=== PATIENT | female | born 1985 | race Caucasian/White ===

== ENCOUNTER 2018-02-22 15:27 | Emergency (ER) | payer OTHER, MEDICAID ==
[~2018-02-22] VITALS: Ht 167.6 cm; Wt 57.0 kg
[2018-02-22 15:34] VITALS: BP 155/102; PULSE 111; RESP 14; TEMP 98.1
--- NOTE | 2018-02-22 16:10 | PD ---
HPI Chief Complaint: Psychiatric Symptoms Time Seen by Provider: 15:40 Travel History International Travel<30 days: No Contact w/Intl Traveler<30days: No Traveled to known affect area: No History of Present Illness HPI 32-year-old female brought in under the Ovalles act after running into the [place], claiming that she was being chased by somebody, and stating that she was suicidal. At the time the patient was brought in by police, she was alert and oriented. She has since become more somnolent and only arousable with loud stimuli. She is not answering questions. There is obvious track villanueva on both upper extremities. Vital signs are stable. And the patient is oxygenating well. There is no sign of active infection. She has no known drug allergies. PFSH Past Medical History ?: Unknown Social History Alcohol Use: Yes Tobacco Use: Yes (unknown) Allergies-Medications (Allergen,Severity, Reaction): Coded Allergies: No Known Allergies (Unverified , 02/22/18) Reported Meds & Prescriptions Reported Meds & Active Scripts Active Active Prescriptions or Reported Medications Unobtainable Review of Systems ROS Limitations: Intoxication, Poor Historian Except as stated in HPI: all other systems reviewed are Neg General / Constitutional: No: Fever Eyes: No: Visual changes HENT: No: Headaches Cardiovascular: No: Chest Pain or Discomfort Respiratory: No: Shortness of Breath Gastrointestinal: No: Abdominal Pain Genitourinary: No: Dysuria Musculoskeletal: No: Pain Skin: No Rash Neurologic: No: Weakness Psychiatric: No: Depression Endocrine: No: Polydipsia Hematologic/Lymphatic: No: Easy Bruising Physical Exam Exam Limitations: Intoxication Narrative GENERAL: Patient is somnolent but arousable. SKIN: Warm and dry. Normal color. Normal turgor. She has old track villanueva on both upper extremities without current signs of infection or abscess HEAD: Atraumatic. Normocephalic. EYES: Pupils equal and round. No scleral icterus. No injection or drainage. ENT: No nasal bleeding or discharge. Mucous membranes pink and moist. Pharynx is clear. NECK: Trachea midline. Supple. CARDIOVASCULAR: Regular rate and rhythm. RESPIRATORY: No accessory muscle use. Clear to auscultation. Breath sounds equal bilaterally. GASTROINTESTINAL: Abdomen soft, non-tender, nondistended. Hepatic and splenic margins not palpable. MUSCULOSKELETAL: Extremities without clubbing, cyanosis, or edema. No obvious deformities. NEUROLOGICAL: Awake and alert. No obvious cranial nerve deficits. Motor grossly within normal limits. Five out of 5 muscle strength in the arms and legs. Normal speech. PSYCHIATRIC: Unable to assess. Data Data Last Documented VS Vital Signs Date Time Temp Pulse Resp B/P (MAP) Pulse Ox O2 Delivery O2 Flow Rate FiO2 02/22/18 17:25 101 18 151/94 (113) 97 Room Air 02/22/18 15:34 98.1 Orders Orders Complete Blood Count With Diff (02/22/18 15:40) Comprehensive Metabolic Panel (02/22/18 15:40) Thyroid Stimulating Hormone (02/22/18 15:40) Urinalysis - C+S If Indicated (02/22/18 15:40) Psych Screen (02/22/18 15:40) Drug Screen, Random Urine (02/22/18 15:40) Alcohol (Ethanol) (02/22/18 15:40) Electrocardiogram (02/22/18 ) Labs Laboratory Tests Test 02/22/18 16:13 White Blood Count 10.1 TH/MM3 Red Blood Count 4.74 MIL/MM3 Hemoglobin 14.9 GM/DL Hematocrit 42.0 % Mean Corpuscular Volume 88.8 FL Mean Corpuscular Hemoglobin 31.5 PG Mean Corpuscular Hemoglobin Concent 35.5 % Red Cell Distribution Width 12.8 % Platelet Count 235 TH/MM3 Mean Platelet Volume 9.5 FL Neutrophils (%) (Auto) 80.0 % Lymphocytes (%) (Auto) 11.1 % Monocytes (%) (Auto) 8.3 % Eosinophils (%) (Auto) 0.3 % Basophils (%) (Auto) 0.3 % Neutrophils # (Auto) 8.1 TH/MM3 Lymphocytes # (Auto) 1.1 TH/MM3 Monocytes # (Auto) 0.8 TH/MM3 Eosinophils # (Auto) 0.0 TH/MM3 Basophils # (Auto) 0.0 TH/MM3 CBC Comment DIFF FINAL Differential Comment Urine Color YELLOW Urine Turbidity HAZY Urine pH 6.5 Urine Specific [place] 1.018 Urine Protein 100 mg/dL Urine Glucose (UA) TRACE mg/dL Urine Ketones TRACE mg/dL Urine Occult Blood TRACE Urine Nitrite NEG Urine Bilirubin NEG Urine Urobilinogen LESS THAN 2.0 MG/DL Urine Leukocyte Esterase NEG Urine RBC 1 /hpf Urine WBC 4 /hpf Urine Squamous Epithelial Cells 2 /hpf Urine Amorphous Sediment FEW Urine Bacteria RARE /hpf Urine Hyaline Casts 31 /lpf Urine Mucus FEW /lpf Microscopic Urinalysis Comment CULT NOT INDICATED Blood Urea Nitrogen 10 MG/DL Creatinine 1.00 MG/DL Random Glucose 77 MG/DL Total Protein 8.6 GM/DL Albumin 4.5 GM/DL Calcium Level 9.1 MG/DL Alkaline Phosphatase 74 U/L Aspartate Amino Transf (AST/SGOT) 33 U/L Alanine Aminotransferase (ALT/SGPT) 35 U/L Total Bilirubin 0.9 MG/DL Sodium Level 140 MEQ/L Potassium Level 3.1 MEQ/L Chloride Level 104 MEQ/L Carbon Dioxide Level 26.7 MEQ/L Anion Gap 9 MEQ/L Estimat Glomerular Filtration Rate 48 ML/MIN Thyroid Stimulating Hormone 3rd Gen 0.852 uIU/ML Urine Opiates Screen POS Urine Barbiturates Screen NEG Urine Amphetamines Screen POS Urine Benzodiazepines Screen NEG Urine Cocaine Screen NEG Urine Cannabinoids Screen POS Ethyl Alcohol Level LESS THAN 3 MG/DL MDM Medical Decision Making Medical Screen Exam Complete: Yes Emergency Medical Condition: Yes Differential Diagnosis Ovalles act. Psychotic symptoms. IV drug use. Narrative Course Patient's vital signs are stable and she is sleeping comfortably. Psychiatric labs ordered per protocol. CBC is unremarkable. Chemistries are significant for potassium 3.1 otherwise unremarkable. Urinalysis shows 100 protein, trace ketones, trace occult blood otherwise unremarkable. Urine tox screen is positive for opiates, amphetamines, and marijuana. Serum alcohol is less than 3 per IV access is obtained and the patient is given 1 L normal saline bolus. Psych screen is ordered. Patient will be medically cleared once able to ambulate. Scripts Unable to Obtain Active Prescriptions or Reported Meds Condition: Stable Trenton Correia February 22, 2018 16:10
[2018-02-22 16:37] LABS: AUTOMATED NEUTROPHIL # 8.1 TH/MM3 (1.8-7.7); BASOPHIL % 0.3 % (0.0-2.0); EOSINOPHIL % 0.3 % (0.0-4.0); HEMOGLOBIN 14.9 GM/DL (11.6-15.3); LYMPH % 11.1 % (9.0-44.0); LYMPHOCYTE # 1.1 TH/MM3 (1.0-4.8); MEAN CELL VOLUME 88.8 FL (80.0-100.0); MEAN CORPUSCULAR HEMOGLOBIN 31.5 PG (27.0-34.0); MEAN CORPUSCULAR HGB CONC 35.5 % (32.0-36.0); MEAN PLATELET VOLUME 9.5 FL (7.0-11.0); MONO % 8.3 % (0.0-8.0); MONOCYTE # 0.8 TH/MM3 (0-0.9); PLATELET COUNT 235 TH/MM3 (150-450); RED BLOOD COUNT 4.74 MIL/MM3 (4.00-5.30); RED CELL DISTRIBUTION WIDTH 12.8 % (11.6-17.2); WHITE BLOOD COUNT 10.1 TH/MM3 (4.0-11.0)
[2018-02-22 16:58] LABS: AMORPHOUS SEDIMENT, URINE FEW; BACTERIA, URINE RARE /hpf; BILIRUBIN, URINE NEG (NEG); BLOOD, URINE TRACE (NEG); GLUCOSE,URINE TRACE mg/dL (NEG); HYALINE CAST, URINE 31 /lpf (RARE); KETONE, URINE TRACE mg/dL (NEG); MUCUS URINE FEW /lpf (OCC); NITRITE,URINE NEG (NEG); PH, URINE 6.5 (5.0-8.5); SQUAMOUS EPITHELIAL CELL URINE 2 /hpf (0-5); URINE COLOR YELLOW (YELLW/STRAW); URINE LEUKOCYTE ESTERASE NEG (NEG)
[2018-02-22 17:07] LABS: ALBUMIN 4.5 GM/DL (3.4-5.0); ALT (GPT) 35 U/L (10-53); AST (GOT) 33 U/L (15-37); BICARBONATE 26.7 MEQ/L (21.0-32.0); BLOOD UREA NITROGEN 10 MG/DL (7-18); CALCIUM 9.1 MG/DL (8.5-10.1); CHLORIDE 104 MEQ/L (98-107); GLOMERULAR FILTRATION RATE 48 ML/MIN (>89); GLUCOSE,RANDOM 77 MG/DL (74-106); SODIUM (NA) 140 MEQ/L (136-145)
[2018-02-22 17:17] LABS: ALKALINE PHOSPHATASE 74 U/L (45-117); TOTAL BILIRUBIN ADULT 0.9 MG/DL (0.2-1.0); TOTAL PROTEIN 8.6 GM/DL (6.4-8.2)
[2018-02-22 17:25] VITALS: BP 151/94; PULSE 101; RESP 18; O2SAT 97
[2018-02-22] MEDS ORDERED: POTASSIUM CHLORIDE 20 MEQ CONTROLLED RELEASE TAB PO ONE (18:00)
[2018-02-22 18:06] VITALS: BP 119/68; PULSE 89; RESP 18; O2SAT 99
[2018-02-22 20:01] VITALS: BP 126/85; PULSE 107; RESP 18; TEMP 98.7; O2SAT 100
[2018-02-22 23:12] VITALS: BP 114/67; PULSE 75; RESP 18; TEMP 98.3; O2SAT 98
[2018-02-23 02:28] VITALS: BP 111/63; PULSE 80; RESP 20; O2SAT 98
[2018-02-23 06:38] VITALS: BP 117/64; PULSE 73; RESP 18; TEMP 99.2; O2SAT 100
--- NOTE | 2018-02-23 10:29 | PD ---
History of Present Illness Chief Complaint: Psychiatric Symptoms Time Seen by Provider: 09:25 Travel History International Travel<30 Days: No Contact w/Intl Traveler<30days: No Known affected area: No Legal Status Legal Status: Ovalles Act O[place] Act Signed By: Aron Balderas History of Present Illness: Patient is a 33-year-old female that was transported under a Ovalles act by [facility] [employer]. On arrival she could not identify herself and she was listed as Jennifer Griffith per documents her real name is Radha Epps with 85. The Ovalles Act state, "subject called her mother stating that she was being chased. Officer Jackelin responded subject found to be very anxious and paranoid after several minutes of denying drug use she ran into traffic and then jumped into the health x-ray of her since being taken into custody she is starting to feel fall asleep." Patient states that she has been from her for three years and they just reunited with their two daughter within the past three months. She states she has an addiction problem and she was in [facility] to find drugs. She believes that she did "mollys" yesterday. Her UDS is positive for opiates, amphetamine and cannabis.On arrival she was not responding so they made her a Jennifer Estrada. Today she has recall of the officers and jumping into the river. She states that she has no suicidal ideations and recognizes that she needs help with her drug addictions or her we leave her again ( she states her does not have a drug problem." Chart reviewed and patient discussed with TIFFANI Russo. Patient was transferred from the main ED last night to [facility] for further monitoring. This morning patient is alert and oriented x 4. She is unkept and looks her stated age. Motor is normal with steady gait. She has good insight , but poor judgement r/t traveling to [facility] and leaving her children for drugs. Attention and concentration is normal. Fund of knowledge is normal. She has good recall of remote and recent memory. Her mood is anxious and affect is euthymic. She endorses no suicidal ideations. Patient is at low risk for self harm or harming others. Patient lives in [place] with her and two children. Will provide patient with information regarding [facility] and direct her to services in her area for assistance with her drug addictions. Patient requesting bus passes and her will pick her up at the bus station. Dx: Mood Disorder, Substance Induced; Polysubstance Use PFSH Past Medical History ?: Unknown Psychiatric History Psychiatric History Patient states that she has no psychiatric history. Hx Psychiatric Treatment: Denies History of Inpatient Treatment: No Social History Hx Alcohol Use: Yes Hx Tobacco Use: Yes (unknown) Hx Substance Use: Yes (leigha, marijuana) Hx of Substance Use Treatment: No Allergies-Medications (Allergen,Severity, Reaction): Coded Allergies: No Known Allergies (Unverified , 02/22/18) Reported Meds & Prescriptions Reported Meds & Active Scripts Active Active Prescriptions or Reported Medications Unobtainable Mental Status Examination Appearance: Disheveled Consciousness: Alert Motor Activity: Normal gait Speech: Unremarkable Language: Adequate Fund of Knowledge: Adequate Attention and Concentration: Adequate Memory: Unremarkable Mood: Appropriate Affect: Appropriate Thought Process & Associations: Intact Thought Content: Appropriate Hallucination Type: None Delusion Type: None Suicidal Ideation: No Suicidal Plan: No Suicidal Intention: No Homicidal Ideation: No Homicidal Plan: No Homicidal Intention: No Insight: Adequate Judgment: Adequate MDM Medical Decision Making Medical Record Reviewed: Yes Assessment/Plan Patient is 33 y/o female brought in as Jennifer Estrada by [facility] [employer]. Patient reports that she lives with her and two children near [place]. She states that she traveled to [place] to find drugs. She believes that she did "leigha," but she is uncertain. She is positive for opiates, amphetamines and cannabis. This morning she is alert and oriented. Requesting to be discharged. She has called her and he is willing to met her at the bus station. She denies any suicidal ideation. She does engage in conversation regarding going into treatment to stop polysubstance use. Patient is at low risk for self harm or harm to others. Will discharge patient will information on services in her area for drug treatment. Ovalles Act lifted. Orders Orders Complete Blood Count With Diff (5/12/18 15:40) Comprehensive Metabolic Panel (02/22/18 15:40) Thyroid Stimulating Hormone (02/22/18 15:40) Urinalysis - C+S If Indicated (02/22/18 15:40) Psych Screen (02/22/18 15:40) Drug Screen, Random Urine (02/22/18 15:40) Alcohol (Ethanol) (02/22/18 15:40) Electrocardiogram (02/22/18 ) Potassium Chloride (Kcl) (02/22/18 18:00) Diet Regular Basic (02/23/18 Breakfast) Results Vital Signs Date Time Temp Pulse Resp B/P (MAP) Pulse Ox O2 Delivery O2 Flow Rate FiO2 02/23/18 06:38 99.2 73 18 117/64 (81) 100 Room Air 02/23/18 02:28 80 20 111/63 (79) 98 Room Air 02/22/18 23:12 98.3 75 18 114/67 (83) 98 Room Air 02/22/18 20:01 98.7 107 18 126/85 (99) 100 Room Air 02/22/18 18:06 89 18 119/68 (85) 99 Room Air 02/22/18 17:25 101 18 151/94 (113) 97 Room Air 02/22/18 15:34 98.1 111 14 155/102 (119) Laboratory Tests Test 02/22/18 16:13 White Blood Count 10.1 Red Blood Count 4.74 Hemoglobin 14.9 Hematocrit 42.0 Mean Corpuscular Volume 88.8 Mean Corpuscular Hemoglobin 31.5 Mean Corpuscular Hemoglobin Concent 35.5 Red Cell Distribution Width 12.8 Platelet Count 235 Mean Platelet Volume 9.5 Neutrophils (%) (Auto) 80.0 Lymphocytes (%) (Auto) 11.1 Monocytes (%) (Auto) 8.3 Eosinophils (%) (Auto) 0.3 Basophils (%) (Auto) 0.3 Neutrophils # (Auto) 8.1 Lymphocytes # (Auto) 1.1 Monocytes # (Auto) 0.8 Eosinophils # (Auto) 0.0 Basophils # (Auto) 0.0 CBC Comment DIFF FINAL Differential Comment Urine Color YELLOW Urine Turbidity HAZY Urine pH 6.5 Urine Specific [place] 1.018 Urine Protein 100 Urine Glucose (UA) TRACE Urine Ketones TRACE Urine Occult Blood TRACE Urine Nitrite NEG Urine Bilirubin NEG Urine Urobilinogen LESS THAN 2.0 Urine Leukocyte Esterase NEG Urine RBC 1 Urine WBC 4 Urine Squamous Epithelial Cells 2 Urine Amorphous Sediment FEW Urine Bacteria RARE Urine Hyaline Casts 31 Urine Mucus FEW Microscopic Urinalysis Comment CULT NOT INDICATED Blood Urea Nitrogen 10 Creatinine 1.00 Random Glucose 77 Total Protein 8.6 Albumin 4.5 Calcium Level 9.1 Alkaline Phosphatase 74 Aspartate Amino Transf (AST/SGOT) 33 Alanine Aminotransferase (ALT/SGPT) 35 Total Bilirubin 0.9 Sodium Level 140 Potassium Level 3.1 Chloride Level 104 Carbon Dioxide Level 26.7 Anion Gap 9 Estimat Glomerular Filtration Rate 48 Thyroid Stimulating Hormone 3rd Gen 0.852 Urine Opiates Screen POS Urine Barbiturates Screen NEG Urine Amphetamines Screen POS Urine Benzodiazepines Screen NEG Urine Cocaine Screen NEG Urine Cannabinoids Screen POS Ethyl Alcohol Level LESS THAN 3 Diagnosis Primary Impression: Mood disorder, drug-induced Additional Impression: Polysubstance abuse Prescriptions Unable to Obtain Active Prescriptions or Reported Meds Disposition: 01 DISCHARGE HOME Condition: Stable Problem Qualifiers Linnea Wheeler February 23, 2018 10:29
--- NOTE | 2018-02-23 10:41 | PD ---
Physical Exam Date Seen by Provider: February 23, 2018 Time Seen by Provider: 10:40 Narrative 33-year-old female previously Ovalles acted and medically cleared for psychiatric evaluation has been seen in the evaluated by psychiatric staff, and felt to be psychiatrically stable for discharge at this time. Patient remains medically stable for discharge at this time. Follow-up will be based on psychiatric note. Data Data Last Documented VS Vital Signs Date Time Temp Pulse Resp B/P (MAP) Pulse Ox O2 Delivery O2 Flow Rate FiO2 02/23/18 06:38 99.2 73 18 117/64 (81) 100 Room Air Orders Orders Complete Blood Count With Diff (02/22/18 15:40) Comprehensive Metabolic Panel (02/22/18 15:40) Thyroid Stimulating Hormone (02/22/18 15:40) Urinalysis - C+S If Indicated (02/22/18 15:40) Psych Screen (02/22/18 15:40) Drug Screen, Random Urine (02/22/18 15:40) Alcohol (Ethanol) (02/22/18 15:40) Electrocardiogram (02/22/18 ) Potassium Chloride (Kcl) (02/22/18 18:00) Diet Regular Basic (02/23/18 Breakfast) Labs Laboratory Tests Test 02/22/18 16:13 White Blood Count 10.1 TH/MM3 Red Blood Count 4.74 MIL/MM3 Hemoglobin 14.9 GM/DL Hematocrit 42.0 % Mean Corpuscular Volume 88.8 FL Mean Corpuscular Hemoglobin 31.5 PG Mean Corpuscular Hemoglobin Concent 35.5 % Red Cell Distribution Width 12.8 % Platelet Count 235 TH/MM3 Mean Platelet Volume 9.5 FL Neutrophils (%) (Auto) 80.0 % Lymphocytes (%) (Auto) 11.1 % Monocytes (%) (Auto) 8.3 % Eosinophils (%) (Auto) 0.3 % Basophils (%) (Auto) 0.3 % Neutrophils # (Auto) 8.1 TH/MM3 Lymphocytes # (Auto) 1.1 TH/MM3 Monocytes # (Auto) 0.8 TH/MM3 Eosinophils # (Auto) 0.0 TH/MM3 Basophils # (Auto) 0.0 TH/MM3 CBC Comment DIFF FINAL Differential Comment Urine Color YELLOW Urine Turbidity HAZY Urine pH 6.5 Urine Specific [place] 1.018 Urine Protein 100 mg/dL Urine Glucose (UA) TRACE mg/dL Urine Ketones TRACE mg/dL Urine Occult Blood TRACE Urine Nitrite NEG Urine Bilirubin NEG Urine Urobilinogen LESS THAN 2.0 MG/DL Urine Leukocyte Esterase NEG Urine RBC 1 /hpf Urine WBC 4 /hpf Urine Squamous Epithelial Cells 2 /hpf Urine Amorphous Sediment FEW Urine Bacteria RARE /hpf Urine Hyaline Casts 31 /lpf Urine Mucus FEW /lpf Microscopic Urinalysis Comment CULT NOT INDICATED Blood Urea Nitrogen 10 MG/DL Creatinine 1.00 MG/DL Random Glucose 77 MG/DL Total Protein 8.6 GM/DL Albumin 4.5 GM/DL Calcium Level 9.1 MG/DL Alkaline Phosphatase 74 U/L Aspartate Amino Transf (AST/SGOT) 33 U/L Alanine Aminotransferase (ALT/SGPT) 35 U/L Total Bilirubin 0.9 MG/DL Sodium Level 140 MEQ/L Potassium Level 3.1 MEQ/L Chloride Level 104 MEQ/L Carbon Dioxide Level 26.7 MEQ/L Anion Gap 9 MEQ/L Estimat Glomerular Filtration Rate 48 ML/MIN Thyroid Stimulating Hormone 3rd Gen 0.852 uIU/ML Urine Opiates Screen POS Urine Barbiturates Screen NEG Urine Amphetamines Screen POS Urine Benzodiazepines Screen NEG Urine Cocaine Screen NEG Urine Cannabinoids Screen POS Ethyl Alcohol Level LESS THAN 3 MG/DL MDM Medical Record Reviewed: Yes Supervised Visit with JORGE: Yes Narrative Course 33-year-old female previously Ovalles acted and medically cleared for psychiatric evaluation has been seen in the evaluated by psychiatric staff, and felt to be psychiatrically stable for discharge at this time. Patient remains medically stable for discharge at this time. Follow-up will be based on psychiatric note. Diagnosis Primary Impression: Mood disorder, drug-induced Additional Impression: Polysubstance abuse [facility] Patient Instructions: General Instructions Scripts Unable to Obtain Active Prescriptions or Reported Meds Disposition: 01 DISCHARGE HOME Condition: Stable Trenton Correia February 23, 2018 10:41
--- NOTE | 2018-02-23 17:37 | EKG ---
Date Performed: 02/22/2018 Time Performed: 16:01:52 PTAGE: 89 years EKG: SINUS TACHYCARDIA ABNORMAL RHYTHM ECG NO PREVIOUS TRACING DOCTOR: Ramon Rowely Interpretating Date/Time 02/23/2018 17:36:04
== END 2018-02-23 11:34 | disposition home or self-care (01) ==
LOC: NEPC 15:27 → EDBD 15:27 → NEPJ 02-23 11:34
DX: F19.14 Other psychoactive substance abuse with psychoactive substance-induced mood disorder (principal); F19.10 Other psychoactive substance abuse, uncomplicated; R94.31 Abnormal electrocardiogram [ECG] [EKG]; R45.851 Suicidal ideations
CPT/HCPCS: 80053; 80307; 81001; 84443; 85025; 93005; 99283

== ENCOUNTER 2018-02-28 08:33 | Emergency (ER) | payer MEDICAID ==
[2018-02-28 08:38] VITALS: BP 164/93; PULSE 97; RESP 16; TEMP 98.5; O2SAT 100
--- NOTE | 2018-02-28 10:10 | PD ---
HPI . Paranoia Chief Complaint: Psychiatric Symptoms Time Seen by Provider: 08:59 Travel History International Travel<30 days: No Contact w/Intl Traveler<30days: No Traveled to known affect area: No History of Present Illness HPI This patient presents to us through the front door with the chief complaint of paranoia, insomnia, anxiety, auditory hallucinations. She reports that her symptoms have been ongoing since her last visit here on 02/22. She denies homicidal or suicidal ideation. Her symptoms are moderate. There are no known modifying factors. This patient was admitted here on 02/22 as a Ovalles Act. Her urine drug screen at that time showed opiates, amphetamines and cannabis. She was initially very agitated and uncooperative. She was actually registered as a Jennifer Estrada. Over the course of the next 24 hours, her symptoms stabilize. She was diagnosed as having a substance-induced mood disorder and was discharged. The patient reports that she has subsequently spent 4 nights in shelter. This would indicate to me that she has not spent much time on her own since she was discharged from here. She was discharged on 02/23. Today is 02/28. She states that she has been for nights in shelter. That only leaves one day unaccounted for. Her records also indicate that she is from [place]. The previous records report that she requested a bus pass to go back to [place] to be with her and 2 children. Patient reports that she has never lived in [place]. She states that they live in [place] which is in [facility]. She states that her works here in [employer]. [facility] Social History Alcohol Use: Yes Tobacco Use: Yes (unknown) Substance Use: Yes (leigha, marijuana) Allergies-Medications (Allergen,Severity, Reaction): Coded Allergies: No Known Allergies (Unverified , 02/28/18) Reported Meds & Prescriptions Reported Meds & Active Scripts Active Active Prescriptions or Reported Medications Unobtainable Review of Systems Except as stated in HPI: all other systems reviewed are Neg Physical Exam Narrative GENERAL: Awake and alert and in no acute distress. SKIN: warm/dry. HEAD: Normocephalic. Atraumatic. EYES: Pupils equal and round. No scleral icterus. No injection or drainage. ENT: Mucous membranes pink and moist. NECK: Supple. CARDIOVASCULAR: Regular rate and rhythm. RESPIRATORY: No accessory muscle use. MUSCULOSKELETAL: No obvious deformities. NEUROLOGICAL: Awake and alert. No obvious cranial nerve deficits. Motor grossly within normal limits. Normal speech. PSYCHIATRIC: Normal speech with appropriate eye contact. Does not appear to be responding to internal stimuli. Data Data Last Documented VS Vital Signs Date Time Temp Pulse Resp B/P (MAP) Pulse Ox O2 Delivery O2 Flow Rate FiO2 02/28/18 08:38 98.5 97 16 164/93 (116) 100 Orders Orders Psych Screen (02/28/18 09:26) Drug Screen, Random Urine (02/28/18 09:26) Basic Metabolic Panel (Bmp) (02/28/18 09:28) Potassium Chloride (Kcl) (02/28/18 11:00) Labs Laboratory Tests Test 02/28/18 09:50 02/28/18 09:55 Blood Urea Nitrogen 6 MG/DL Creatinine 0.72 MG/DL Random Glucose 87 MG/DL Calcium Level 8.9 MG/DL Sodium Level 141 MEQ/L Potassium Level 3.4 MEQ/L Chloride Level 108 MEQ/L Carbon Dioxide Level 28.8 MEQ/L Anion Gap 4 MEQ/L Estimat Glomerular Filtration Rate 94 ML/MIN Urine Opiates Screen NEG Urine Barbiturates Screen NEG Urine Amphetamines Screen POS Urine Benzodiazepines Screen NEG Urine Cocaine Screen NEG Urine Cannabinoids Screen POS MDM Medical Decision Making Medical Screen Exam Complete: Yes Emergency Medical Condition: Yes Differential Diagnosis Differential diagnosis of psychosis includes but is not limited to schizophrenia , schizoaffective disorder, bipolar disorder, intoxication, substance abuse, dementia Narrative Course This patient presents complaining with psychosis. Specifically, she states that she has paranoia, anxiety, auditory hallucinations and insomnia. The patient was Ovalles Acted here on 02/22 with similar symptoms. She was ultimately diagnosed as substance-induced mood disorder. Her only lab abnormalities at that time were a urine drug screen positive for opiates, amphetamines and cannabis and a potassium level of 3.1. I have ordered a repeat BMP as well as a repeat urine drug screen. BMP Diagram 02/28/18 09:50 Calcium Level 8.9 I have given her a dose of oral potassium. Drug screen today is positive for amphetamines and cannabis. She is medically clear for psychiatric evaluation. Diagnosis Primary Impression: Paranoia Additional Impressions: Polysubstance abuse Medical clearance for psychiatric admission Scripts Unable to Obtain Active Prescriptions or Reported Meds Condition: Zina Bland MD February 28, 2018 10:10
[2018-02-28 10:19] LABS: BICARBONATE 28.8 MEQ/L (21.0-32.0); CALCIUM 8.9 MG/DL (8.5-10.1); CREATININE 0.72 MG/DL (0.50-1.00)
[2018-02-28] MEDS ORDERED: POTASSIUM CHLORIDE 20 MEQ CONTROLLED RELEASE TAB PO ONE (11:00)
== END 2018-02-28 13:06 | disposition left against medical advice (07) ==
LOC: NEPD 08:33
DX: F22 Delusional disorders (principal); F19.10 Other psychoactive substance abuse, uncomplicated
CPT/HCPCS: 80048; 80307; 99284